=== PATIENT | female | born 1935 | race Caucasian/White ===

== ENCOUNTER 2019-10-24 20:19 | Emergency (ER) | payer MEDICARE, OTHER ==
[~2019-10-24] VITALS: Ht 165.1 cm; Wt 162.3 kg
[2019-10-24 23:30] VITALS: BP 137/77
== END 2019-10-25 00:05 | disposition home or self-care (01) ==
LOC: EMS 20:21
DX: C78.7 Secondary malignant neoplasm of liver and intrahepatic bile duct (principal); Z99.81 Dependence on supplemental oxygen